=== PATIENT | male | born 1975 | race Caucasian/White ===

== ENCOUNTER 2016-04-30 09:47 | Emergency (ER) | payer MEDICAID, OTHER ==
[~2016-04-30] VITALS: Ht 177.8 cm; Wt 74.8 kg
[~2016-04-30 09:47] MED LIST: ABILIFY15 M1 PO; AMOXICILLIN500 M1; AMOXICILLIN500 MG PO; BACTRIM DS 800/1 TAB PO; CHERATUSSIN AC; KEFLEX250 MG PO; MOTRIN800 MG PO; ROBITUSSIN/CODEI5 ML PO; TRAMADOL50 MG PO; VISTARIL50 M1 PO; ZYPREXA20 MG PO
[2016-04-30 09:58] VITALS: BP 125/76
[2016-04-30] MEDS ORDERED: DEPAKOTE ER500 MG PO (10:05)
[2016-04-30] MEDS ORDERED: NEURONTIN300 MG PO (10:06)
--- NOTE | 2016-04-30 10:17 | NUR ---
PT CAME TO ER DUE TO SUICIDAL IDEATION. PLAN IS TO CUT SELF WITH ANYTHING COULD FIND. DENIES HOMICIDAL IDEATIONS---ADMITS TO VISUAL / AUDITORY HALLUCINATIONS "VOICES TELL ME TO HURT MYSELF"---"SEE IMAGES BUT WHEN I WALK UP TO THEM, THEY ARE NOT THERE".PT IS TAKING ABILIFY,DEPAKOTE AND GABAPENTIN.PT STATES "SOMETIMES I PUNCH MY FACE"PT HAS A HX OF BIPOLAR SCHIZOPHRENIA, HTN, SEIZURE.HAS SCRATCHES SCAR ON RT AND LEFT ARM.SAFETY PRECAUTION INSTITUTED. SUPERVISSION RENDERED.SECURITY NOTIFIED.NEEDS ATTENDED. MADE AWARE OF PT'S CONDITION.
--- NOTE | 2016-04-30 10:17 | NUR ---
BODY ASSESSMENT DONE NOTED DRY ABRASION ON LEFT ARM,MULTIPLE OLD SCAR ON RIGHT ARM, SECURITY CHECKED BELONGINGS
--- NOTE | 2016-04-30 10:23 | NUR ---
PT REFUSES TO HAVE EKG. MADE AWARE.
[2016-04-30] MEDS ORDERED: ALBUTEROL 0.083% 2.5 MG/3 ML NEBU INH ONE (10:35)
--- NOTE | 2016-04-30 10:36 | NUR ---
DR. BURK AT BEDSIDE
--- NOTE | 2016-04-30 10:38 | NUR ---
PT AWARE NEED URINE COLLECTION ONE GLASS OF WATER GIVEN
--- NOTE | 2016-04-30 10:42 | NUR ---
RT AT BEDSIDE
--- NOTE | 2016-04-30 10:50 | NUR ---
DR. BURK AWARE OF THE RESULT OF URINE DIPSTICK
--- NOTE | 2016-04-30 10:57 | NUR ---
[facility] AT BEDSIDE
--- NOTE | 2016-04-30 11:12 | NUR ---
PTI LYING COMFORTABLY ON BED.PT IS CALM.SAFETY PRECAUTION INSTUTED. WILL CONTINUE TO MONITOR PT.
--- NOTE | 2016-04-30 11:17 | NUR ---
APPLE JUICE PROVIDED TO PT.NEEDS ATTENDED.WILL CONTINUE TO MONITOR PT.
--- NOTE | 2016-04-30 11:26 | NUR ---
[facility] AT BEDSIDE.
--- NOTE | 2016-04-30 11:31 | NUR ---
DR BURK AT BEDSIDE.
[2016-04-30] MEDS ORDERED: NACL 0.9% 1,000 ML IV ONE (12:05)
[2016-04-30] MEDS ORDERED: METOPROLOL 50 MG TAB PO ONE (12:05)
--- NOTE | 2016-04-30 12:20 | NUR ---
PT ATE 100 % OF VHIS LUNCH. PT RESTING ON BED COMFORTABLY. SAFETY PRECAUTION INSTITUTED. WILL CONTINUE TO MONITOR PT.
--- NOTE | 2016-04-30 12:28 | NUR ---
PER DR BURK ,HOLD IVF AND LOPRESSOR. Addendum: 04/30/16 at 1230 by [email or web address] VITAL SIGN STABLE
--- NOTE | 2016-04-30 12:28 | NUR ---
PER DR BURK ,HOLD IVF AND LOPRESSOR.
--- NOTE | 2016-04-30 13:19 | NUR ---
TALKED TO NICHOLAS DESAI. INQUIRE ABOUT PT'S STATUS.WANTS DR BURK TO CONTACT DR KRAUSE REGARDING PT. NOTIFIED DR BURK.
--- NOTE | 2016-04-30 13:25 | NUR ---
TALKED TO MERLINE WANTS DEPAKOTE LEVEL AND WANTS DR BURK TO ORDER DEPAKOTE FOR PT BEFORE CONTACTING DR KRAUSE.NOTIFIED CHARGED NURSE ELEANOR.DR BURK IS ON HIS LUNCH.
--- NOTE | 2016-04-30 13:32 | NUR ---
PT REMOVES HIS BP CUFF.CONVINCED PT TO PUTIT BACK ON.EXPLAINE THE REASON OF ATTACHING THE BP CUFF BUT PT REFUSES.
--- NOTE | 2016-04-30 13:58 | NUR ---
DR BURK MADE AWARE OF PT'S VALPROIC ACID LEVEL.
[2016-04-30] MEDS ORDERED: DIVALPROEX 500 MG TABEC PO ONE (14:05)
--- NOTE | 2016-04-30 14:57 | NUR ---
PT LYING ON BED.NEEDS ATTENDED.SFETY PRECAUTION INSTITUTED.WILL CONTINUE TO MONITOR PT.
--- NOTE | 2016-04-30 15:35 | NUR ---
TALKED TO PT VERBALIZED THAT HE IS GETTING RESTLESS, PT SITTING IN THE BED AT THIS TIME, ENCOURAGED TO VERBALIZED FEELINGS,MD WILL ORDER MED.
--- NOTE | 2016-04-30 15:37 | NUR ---
PT IS RESTLESS AT THIS TIME.WANTS TO TALK TO DR BURK.DR BURK NOTIFIED.
[2016-04-30] MEDS ORDERED: LORazepam 1 MG TAB PO ONE (15:45)
--- NOTE | 2016-04-30 15:45 | NUR ---
PTB IS AGITATED PT STATES "I NWON'T GO OUT WITHOUT A BANG".DR BURK TALKED TO PT.SAFETY PRECAUTION INSTITUTED. WILL CONTINUE TO MONITOR PT.
--- NOTE | 2016-04-30 16:16 | NUR ---
PT REMOVED ALL MONITORS IN PLACED.DON'T WANT HIS VS TO BE TAKEN
--- NOTE | 2016-04-30 16:36 | NUR ---
PT SLEEPING AT THIS TIME, NO AGITATION NOTED.
--- NOTE | 2016-04-30 17:17 | NUR ---
PT IS SLEEPING AT THIS TIME. SAFETY PRECAUTION INSTITUTED.WILL CONTINUE TO MONITOR PT.
--- NOTE | 2016-04-30 19:00 | NUR ---
PT TRANSFERED TO [facility].LOCKED WEST 2B VIA GURNEY/AMBNULANCE.PT IS ACCOMPANIED BY EMS.REPORT AND DOCUMENTS GIVEN TO EMS.NO ACUTE DISTRESS NOTED AT THIS TIME.
[2016-04-30 19:03] VITALS: BP 134/65
== END 2016-04-30 19:00 ==
LOC: MED 09:47
DX: R45.851 Suicidal ideations (principal); I10 Essential (primary) hypertension; F17.200 Nicotine dependence, unspecified, uncomplicated; Z86.69 Personal history of other diseases of the nervous system and sense organs; Z71.6 Tobacco abuse counseling; Z88.8 Allergy status to other drugs, medicaments and biological substances
CPT/HCPCS: 36415; 80053; 80305; 81002; 85025; 93005; 94640; 99285; G0480; G0482; J7613